=== PATIENT | female | born 1970 | race Caucasian/White ===

== ENCOUNTER 2023-01-23 07:34 | Outpatient (CLI) | payer OTHER, SELFPAY ==
--- NOTE | ~2023-01-23 | MM_ITS ---
EXAMINATION: MM screening [facility] BI w jory HISTORY: Screening mammogram TECHNIQUE: Craniocaudal and mediolateral oblique 3-D tomosynthesis images were obtained and synthetic 2-D images were generated. CAD analysis was submitted and interpreted. COMPARISON: 06/11/2018, 05/30/2017, 10/10/2014, 09/22/2014 BREAST PARENCHYMAL COMPOSITION: The breasts are extremely dense, which lowers the sensitivity of mamm ography. FINDINGS: There are waxing and waning breast masses. No suspicious mass, calcification, or architectu ral distortion are identified in either breast to suggest malignancy. There has been no suspicious in terval change. IMPRESSION: 1. No mammographic evidence of malignancy. 2. Recommend routine screening mammography in one year. BI-RADS Category 2: Benign finding(s). Reviewed, dictated and finalized at location A. [employer]
== END 2023-01-23 07:35 | disposition home or self-care (01) ==
LOC: ANHIMG 07:36
PROVIDERS: PCP Internal Medicine; Visit Provider Nurse Practitioner Obstetrics & Gynecology
DX: Z12.31 Encounter for screening mammogram for malignant neoplasm of breast (principal)
CPT/HCPCS: 77063; 77067

== ENCOUNTER 2024-04-30 16:26 | Outpatient (CLI) | payer BC, SELFPAY ==
--- NOTE | ~2024-04-30 | MM_ITS ---
EXAMINATION: MM screening [facility] BI w jory HISTORY: Screening TECHNIQUE: Craniocaudal and mediolateral oblique 3-D tomosynthesis images were obtained and synthetic 2-D images were generated. CAD analysis was submitted and interpreted. COMPARISON: Comparison to multiple prior studies sequentially, with oldest reviewed study dated 01/2014. BREAST PARENCHYMAL COMPOSITION: Dense: The breasts are extremely dense, which lowers the sensitivity of mammography. FINDINGS: There is no evidence of suspicious mass, calcification, or architectural distortion to sugg est malignancy in either breast. There has been no suspicious interval change. IMPRESSION: 1. No mammographic evidence of malignancy. 2. Recommend routine screening mammography in one year. BI-RADS Category 1: Negative Reviewed, dictated and finalized at location B.
== END 2024-04-30 16:27 | disposition home or self-care (01) ==
PROVIDERS: PCP Internal Medicine; Visit Provider Nurse Practitioner Obstetrics & Gynecology
DX: Z12.31 Encounter for screening mammogram for malignant neoplasm of breast (principal)
CPT/HCPCS: 77063; 77067

== ENCOUNTER 2024-05-21 00:53 | Day surgery (SDC) | payer BC, SELFPAY ==
[2024-05-08 09:34] VITALS: BMI 24.9
[2024-05-21] VITALS (10 sets, daily range): BP systolic 94–110; BP diastolic 48–68; PULSE 66–81; RESP 12–20; TEMP 36.1; O2SAT 100
[2024-05-21] MEDS: LACTATED RINGERS 1,000 ML 150 ML IV CONT (09:41)
--- NOTE | 2024-05-21 10:21 | PM.HPGS ---
History of Present Illness History of Present Illness Consent: Risks, benefits, and alternatives have been discussed and questions answered. Patient agrees to proceed with procedure. Chief complaint: Neoplasm screening Narrative: Brittney Hardin is a 53 year old female here for first screening colonoscopy Review of Systems Review of Systems: All systems reviewed & are unremarkable except as noted in HPI and below PMFSH Past Medical History Medical History (Updated 05/21/24 @ 10:23 by Elias Gould MD) Colon cancer screening Hernia Surgical History Surgical History (Updated 11/02/19 @ 11:02 by SHAKIR Alba) H/O inguinal hernia repair H/O lumpectomy Left breast Social History Social History Smoking status: Never smoker Alcohol intake: current Drinks per week: 3 Alcohol use details: WINE Substance use: never Substance use type: does not use Living arrangements: with family Gender identity (if verbalized by the patient): Female Spiritual care concerns: No Meds Home Medications and Allergies Home Medications Medication Instructions Recorded Confirmed Type linaclotide 72 mcg capsule 72 mcg PO DAILY 05/08/24 05/08/24 History (Linzess) Allergies Allergy/AdvReac Type Severity Reaction Status Date / Time hydrocodone Allergy Unknown Unknown Verified 05/21/24 09:04 Sulfa (Sulfonamide Allergy Unknown Hives Verified 05/21/24 09:04 Antibiotics) Vital Signs Vital Signs - 24 hr 05/21/24 09:05 Temperature 97 F L Pulse Rate 74 Respiratory Rate 18 Blood Pressure 106/48 L Pulse Oximetry 100 Oxygen Delivery Room Air Exam Const: General: comfortable and no acute distress HENMT: Face/Nose/Sinus: Normal nares present Eyes: General: appearance normal, both eyes and all related structures Neck: Neck: no JVD Resp: Auscultation: clear to auscultation bilaterally Cardio: Rate: regular rate Rhythm: regular rhythm GI: Inspection: non-distended GI Palp: Yes Soft to palpation Skin: General skin exam: normal color Neuro: General: gait normal Speech: normal speech Extrem: General: normal to inspection Psych: Mental Status: mental status grossly normal Assessment and Plan Assessment and plan (1) Colon cancer screening: Code(s): Z12.11 - Encounter for screening for malignant neoplasm of colon Status: Acute Assessment and Plan: colonoscopy
--- NOTE | 2024-05-21 10:22 | WPDANESEPPF ---
Anes - Initial Pre Proc Eval Procedure: Operation Date: 05/21/24 10:30 Proposed Procedures p Screening Colonoscopy - Elias Gould MD Date/Time: 05/21/24 10:22 Surgeon: Elias Gould MD Pre Op Diagnosis: Neoplasm screening Patient Data Age: 53 Gender: F Height: 1.65 m Weight: 63.6 kg Last Vital Signs Temp 97 F L 05/21/24 09:05 Pulse 74 05/21/24 09:05 Resp 18 05/21/24 09:05 BP 106/48 L 05/21/24 09:05 Pulse Ox 100 05/21/24 09:05 O2 Del Method Room Air 05/21/24 09:05 Allergies Allergy/AdvReac Type Severity Reaction Status Date / Time hydrocodone Allergy Unknown Unknown Verified 05/21/24 09:04 Sulfa (Sulfonamide Allergy Unknown Hives Verified 05/21/24 09:04 Antibiotics) Home Medications Medication Instructions Recorded Confirmed Type linaclotide 72 mcg capsule 72 mcg PO DAILY 05/08/24 05/08/24 History (Herlinda) Patient hx anesthesia problems: none Family hx anesthesia problems: none Results Review: All pre-operative results and documents have been reviewed as part of the pre-operative evaluation. [facility] Past Medical History Medical History (Updated 11/03/19 @ 00:00 by Urban Hall) Hernia Surgical History Surgical History (Updated 11/02/19 @ 11:02 by SHAKIR Alba) H/O inguinal hernia repair H/O lumpectomy Left breast Social History Social History Smoking status: Never smoker Alcohol intake: current Drinks per week: 3 Alcohol use details: WINE Substance use: never Substance use type: does not use Living arrangements: with family Gender identity (if verbalized by the patient): Female Spiritual care concerns: No Anes - Eval Final PreProcedure Day of Procedure 05/21/24 10:22 Patient weight: normal Heart: regular rate and rhythm Lungs: clear to auscultation Airway: Mallampati scale class II Neurological: alert and oriented Last oral intake: >/= 8 hours ASA classification: II Emergent: no Anesthetic plan: proceed Anesthesia type and monitoring: general GIVS and standard monitoring Results Review: All pre-operative results and documents have been reviewed as part of the pre-operative evaluation. Informed Consent: The patient's anesthetic plan and its attendant risks and benefits were discussed with the patient/family/POA. Questions were solicited and answers provided to the satisfaction of the patient/family/POA.
--- NOTE | 2024-05-21 11:11 | SUR.PHASEII ---
Pt. reports chest pressure upon awakening, vitals stable, repositioned pt. to back and elevated head. no change in chest pressure after a few minutes. Dr. Vasquez notified and after assessing pt. wants to continue to monitor. Pt. able to ambulate to chair without difficulty, will continue to monitor.
--- NOTE | 2024-05-21 11:17 | ECG_ITS ---
Test Date: 2024-05-21 11:27:04 Measurements Intervals Warden Rate: 68 P: 20 UT: 142 QRS: 74 QRSD: 90 T: 41 QT: 386 QTc: 413 Interpretive Statements SINUS RHYTHM NORMAL ECG No previous ECG available for comparison Electronically Signed On 05-21-2024 11:45:56 CDT by Jose Crenshaw D.O.
--- NOTE | 2024-05-21 11:35 | SUR.PHASEII ---
At Pt. reports chest pressure upon awakening, vitals stable, pt. A&O x3, repositioned pt. to back and elevated head of bed. No change after a few minutes, Dr. Vasquez notified and wanted to continue to monitor for now. No changes after 10 minutes, Stat EKG preformed, vitals stable, pt. A&Ox3, will continue to monitor. awaiting new orders.
[2024-05-21] MEDS: FAMOTIDINE 20 MG/2 ML VIAL IV PUSH (11:54)
--- NOTE | 2024-05-21 11:55 | SUR.PHASEII ---
EKG normal, vitals stable, chest pain continues with no changes, 20mg Famotidine IV push given, will continue to monitor.
--- NOTE | 2024-05-21 12:58 | SUR.PHASEII ---
No change in pain 10minutes after IV famotidine given. Okay to discharge home per Dr. Vasquez verbal order. Pt. instructed to go to emergency department if pain worsens and follow up with primary care physician and needed. Pt. and spouse both verbalized understanding of all instructions discussed, IV discontinued and pt. discharged without difficulty.
== END 2024-05-21 12:09 | disposition home or self-care (01) ==
PROVIDERS: PCP Nurse Practitioner Adult Health; Referring Provider Nurse Practitioner Obstetrics & Gynecology; Visit Provider Internal Medicine Gastroenterology
PROC: 0DJD8ZZ Inspection of Lower Intestinal Tract, Via Natural or Artificial Opening Endoscopic (ICD-10-PCS; CPT 45378; principal; 2024-05-21 10:30)
DX: Z12.11 Encounter for screening for malignant neoplasm of colon (principal); K64.8 Other hemorrhoids
CPT/HCPCS: 45378; 93005; J2704; J7120